=== PATIENT | female | born 1955 | race Caucasian/White ===

== ENCOUNTER 2017-12-30 23:55 | Emergency (ER) | payer BC ==
[~2017-12-30] VITALS: Ht 172.7 cm; Wt 101.7 kg
[2017-12-31] MEDS ORDERED: ERYTHROMYC1 APPLICAT BOTH EYES (02:36)
[2017-12-31 02:49] VITALS: BP 136/68
== END 2017-12-31 02:50 | disposition home or self-care (01) ==
LOC: EME 23:55
DX: S05.01XA Injury of conjunctiva and corneal abrasion without foreign body, right eye, initial encounter (principal); X58.XXXA Exposure to other specified factors, initial encounter
CPT/HCPCS: 99281; 99284